=== PATIENT | female | born 1970 | race Caucasian/White ===

== ENCOUNTER 2023-09-12 16:47 | Emergency (ER) | payer BC ==
[~2023-09-12] VITALS: Ht 170.2 cm; Wt 113.4 kg
[2023-09-12] MEDS ORDERED: LEVOFLOXACIN 500 MG TABLET PO SCH (17:30)
[2023-09-12] MEDS ORDERED: LEVO-70 PO (17:47)
[2023-09-12 17:57] VITALS: BP 120/50; PULSE 88; RESP 18; O2SAT 100
== END 2023-09-12 18:09 | disposition home or self-care (01) ==
LOC: EDH 16:47
DX: R50.9 Fever, unspecified (principal); Z90.49 Acquired absence of other specified parts of digestive tract; Z88.2 Allergy status to sulfonamides
CPT/HCPCS: 36415; 87040; 87070; 87077; 87186